=== PATIENT | female | born 1970 | race Caucasian/White ===

== ENCOUNTER 2016-10-20 16:57 | Observation (INO) | payer BC ==
[~2016-10-20] VITALS: Ht 157.5 cm; Wt 48.3 kg
[~2016-10-20 16:57] MED LIST: ALEVE220 MG PO; BREO ELLIPTA 21 EACH IH; CLONAZEPAM1 MG PO; COLACE100 MG PO; DAILY MULTIPLE1 EACH PO; FLONASE16 G1 BOTH NARES; KLONOPIN0.5 M1 PO; LORAZEPAM0.5 MG PO; MEGACE20 MG PO; MOTRIN600 MG PO; RESTORIL30 MG PO; TOPAMAX50 MG PO; ULTRACET1 TABLET PO; VENTOLIN HFA18 GM IH; VIIBRYD40 MG PO; VITAMIN D-32000 UNI2 PO; VITRON-C TABLE1 EACH PO; ZYRTEC10 M3 PO
[2016-10-20 17:36] LABS: HEMATOCRIT 40.1 % (36.0-46.0); MCH 30.1 PG (29.0-34.0); MCHC 34.4 G/DL (30.0-36.0); MCV 87.4 FL (83-99); MEAN PLAT.VOLUME 9.3 uM^3 (9.5-12.4); PLATELET COUNT 259 K/uL (156-360); RBC DIS.WIDTH-CV 12.7 % (11.8-14.6); RBC DIS.WIDTH-SD 40.3 % (39-53); RED BLOOD COUNT 4.59 M/uL (3.80-5.20); WHITE BLOOD COUNT 7.6 K/uL (4.1-10.2)
[2016-10-20 17:47] LABS: CHLORIDE 112 mEq/L (99-109); POTASSIUM 3.7 mEq/L (3.7-5.4); SODIUM 141 mEq/L (136-147)
[2016-10-20 17:49] LABS: GLUCOSE 86 mg/dL (70-99)
[2016-10-20 17:50] LABS: ANION GAP 8 MEQ/L (2-14)
[2016-10-20 17:53] LABS: GFR ESTIMATE (CALCULATED) > 59 mL/min/; UREA NITROGEN (BUN) 15 mg/dL (9-23)
[2016-10-20 17:57] LABS: TROP-I INTERPRETATION NEGATIVE; TROPONIN-I < 0.01 ng/mL (0.0-0.30)
[2016-10-20 20:53] LABS: TOTAL BILIRUBIN 0.4 mg/dL (0.0-1.0)
[2016-10-20 20:55] LABS: ALKALINE PHOSPHATASE 42 IU/L (3-129)
[2016-10-20 20:57] LABS: DIRECT BILIRUBIN 0.2 mg/dL (0.0-0.3)
[2016-10-20 20:58] LABS: LIPASE 80 U/L (1.0-51.0)
[2016-10-20 21:22] VITALS: BP 120/68
[2016-10-20 23:38] VITALS: BP 97/56
[2016-10-21 01:08] LABS: TROP-I INTERPRETATION NEGATIVE; TROPONIN-I < 0.01 ng/mL (0.0-0.30)
[2016-10-21 03:27] VITALS: BP 88/49
[2016-10-21 06:03] LABS: TROP-I INTERPRETATION NEGATIVE; TROPONIN-I < 0.01 ng/mL (0.0-0.30)
[2016-10-21 06:07] LABS: HDL CHOLESTEROL 52 MG/DL (Desirable>=50); LDL CHOLESTEROL 100 mg/dL (Desirable<100); NON-HDL CHOLESTEROL 108 mg/dL (Desirable<160); TOTAL CHOLESTEROL 160 mg/dL (Desirable<200); TRIGLYCERIDES 39 MG/DL (Normal: <150)
[2016-10-21 07:12] VITALS: BP 109/62
[2016-10-21 09:18] VITALS: BP 104/60
[2016-10-21 11:50] VITALS: BP 123/74
[2016-10-21] MEDS ORDERED: LOPRESSOR25 MG PO (13:04)
[2016-10-21] MEDS ORDERED: ASPIR-LOW81 MG PO (13:04)
== END 2016-10-21 13:52 | disposition home or self-care (01) ==
LOC: EME 16:57 → EDOF 20:10 → 5WEST 21:13
PROVIDERS: Emergency Medicine; Physician Assistant Medical
DX: R07.89 Other chest pain (principal); R94.31 Abnormal electrocardiogram [ECG] [EKG]; J45.20 Mild intermittent asthma, uncomplicated; G43.009 Migraine without aura, not intractable, without status migrainosus; G89.29 Other chronic pain; M54.9 Dorsalgia, unspecified; R91.8 Other nonspecific abnormal finding of lung field; F32.9 Major depressive disorder, single episode, unspecified; F41.9 Anxiety disorder, unspecified; I10 Essential (primary) hypertension; R10.816 Epigastric abdominal tenderness; M25.519 Pain in unspecified shoulder
CPT/HCPCS: 71020; 71275; 76705; 80048; 80061; 80076; 83690; 84484; 85027; 93005; 94640; 99281; 99285; G0378; J1200; J1885; J2765; J2930; J7030

== ENCOUNTER 2017-11-22 20:39 | Observation (INO) | payer BC ==
[~2017-11-22] VITALS: Ht 152.4 cm; Wt 51.2 kg
[~2017-11-22 20:39] MED LIST changes: +ASPIR-LOW81 MG PO; +LOPRESSOR25 MG PO; -VITAMIN D-32000 UNI2 PO; +VITAMIN D35000 UNIT PO
[2017-11-22 21:18] LABS: HEMATOCRIT 40.5 % (36.0-46.0); HEMOGLOBIN 14.1 G/DL (11.9-15.5); MCH 31.3 PG (29.0-34.0); MCHC 34.8 G/DL (30.0-36.0); MCV 89.8 FL (83-99); PLATELET COUNT 282 K/uL (156-360); RBC DIS.WIDTH-CV 12.8 % (11.8-14.6); RBC DIS.WIDTH-SD 41.9 % (39-53); RED BLOOD COUNT 4.51 M/uL (3.80-5.20)
[2017-11-22 21:46] LABS: CHLORIDE 109 MEQ/L (99-109); POTASSIUM 3.8 MEQ/L (3.7-5.4); SODIUM 142 MEQ/L (136-147)
[2017-11-22 21:50] LABS: TROP-I INTERPRETATION NEGATIVE; TROPONIN-I < 0.01 ng/mL (0.0-0.30)
[2017-11-22 21:51] LABS: CREATININE 0.9 MG/DL (0.6-1.3); GFR ESTIMATE (CALCULATED) > 59 mL/min/; GLUCOSE 122 mg/dL (70-99); UREA NITROGEN (BUN) 15 mg/dL (9-23)
[2017-11-22] MEDS ORDERED: ADULT ASPIRIN R81 MG PO (23:31)
[2017-11-22] MEDS ORDERED: IBUPROFEN600 MG PO (23:32)
[2017-11-22] MEDS ORDERED: SEROQUEL12.5 MG PO (23:32)
[2017-11-23 00:53] VITALS: BP 111/69
[2017-11-23 09:53] LABS: HDL CHOLESTEROL 52 MG/DL (Desirable>=50); LDL CHOLESTEROL 130 mg/dL (Desirable<100); NON-HDL CHOLESTEROL 145 mg/dL (Desirable<160); TOTAL CHOLESTEROL 197 mg/dL (Desirable<200); TRIGLYCERIDES 77 MG/DL (Normal: <150)
[2017-11-23 10:12] LABS: TROP-I INTERPRETATION NEGATIVE; TROPONIN-I < 0.01 ng/mL (0.0-0.30)
[2017-11-23] MEDS ORDERED: TYLENOL REGULA325 MG PO (11:26)
[2017-11-23] MEDS ORDERED: MAG-AL PLUS SUS30 ML PO (11:26)
[2017-11-23] MEDS ORDERED: ONDANSETRON ODT4 MG PO (11:27)
[2017-11-23] MEDS ORDERED: FAMOTIDINE20 MG PO (11:27)
[2017-11-23] MEDS ORDERED: TUMS X-STR300 MG PO (11:28)
[2017-11-23 11:52] VITALS: BP 104/58
[2017-11-23 14:29] LABS: TROP-I INTERPRETATION NEGATIVE; TROPONIN-I < 0.01 ng/mL (0.0-0.30)
== END 2017-11-23 15:42 | disposition home or self-care (01) ==
LOC: EME 20:39 → EDOF 23:31 → 4SOUTH 23:31 → EDOF 23:31 → ENRESERV 23:32 → 4SOUTH 11-23 00:42
PROVIDERS: Internal Medicine; Physician Assistant Medical
DX: R07.9 Chest pain, unspecified (principal); K21.9 Gastro-esophageal reflux disease without esophagitis; R94.31 Abnormal electrocardiogram [ECG] [EKG]; R00.2 Palpitations; H93.19 Tinnitus, unspecified ear; G89.29 Other chronic pain; M54.5 Low back pain; R11.0 Nausea; M25.559 Pain in unspecified hip; J45.20 Mild intermittent asthma, uncomplicated; F32.9 Major depressive disorder, single episode, unspecified; F41.9 Anxiety disorder, unspecified; Z90.710 Acquired absence of both cervix and uterus; Z82.49 Family history of ischemic heart disease and other diseases of the circulatory system; Z83.3 Family history of diabetes mellitus; Z88.5 Allergy status to narcotic agent
CPT/HCPCS: 71046; 80048; 80061; 84484; 85027; 93005; 94640; 94799; 99281; 99285; G0378